=== PATIENT | male | born 1995 | race American Indian/Alaskan Native ===

== ENCOUNTER 2018-01-11 22:53 | Emergency (ER) | payer SELFPAY ==
[2018-01-11 23:27] VITALS: BP 120/73
== END 2018-01-12 01:00 | disposition left against medical advice (07) ==
LOC: ED 22:53
DX: T14.90XA Injury, unspecified, initial encounter (principal); Z53.21 Procedure and treatment not carried out due to patient leaving prior to being seen by health care provider